=== PATIENT | male | born 1965 | race Caucasian/White ===

== ENCOUNTER 2017-07-28 08:50 | Day surgery (SDC) | payer BC, SELFPAY ==
[2017-07-24 14:18] VITALS: BMI 27.3
[2017-07-28] VITALS (13 sets, daily range): BP systolic 106–136; BP diastolic 60–79; PULSE 70–76; RESP 15–18; TEMP 36.8; O2SAT 93–99
--- NOTE | 2017-07-28 10:17 | HMH.PROC ---
[facility] Procedure Note Procedure Note:: Colonoscopy Procedure Report: Colonoscopy with cold snare polypectomy Endoscopist: Amarjit Quintanilla II, MD Referring physician: Zaki Burleson MD Date of Procedure: July 28, 2017 Equipment: Olympus 180 variable stiffness pediatric colonoscope Sedation: Fentanyl 150 mg IV/ Versed 9 mg IV Indication: Mr. Kellogg is a 51-year-old gentleman who is here for follow-up screening/surveillance colonoscopy. He does state that he had a colonoscopy in 2012 (Dr. Eyal Ahn at [facility] in [place]) and had polyps removed. He had a repeat colonoscopy again at 3 months from that time. The patient does get some intermittent heartburn and reflux. He also has intermittent functional diarrhea. He reports no rectal bleeding, abdominal pain, weight loss or family history of colon cancer. Procedure: Prior to the procedure, a history and physical exam was performed, and patient's medications and allergies were reviewed. The risks, benefits and alternatives of the sedation and procedure were discussed with the patient. All questions were answered and informed consent was obtained. The patient was brought to the procedure room. Patient identification and proposed procedure were verified by the physician and the nurse. The patient was placed in a left lateral decubitus position and the scope was passed under direct vision. Throughout the procedure, the patient's blood pressure, pulse, and oxygen saturations were monitored continuously. The colonoscopy was accomplished without difficulty. The patient tolerated the procedure well. Findings: On digital rectal examination there was normal rectal tone. There were no external hemorrhoids. The prostate was 2+, mildly firm but symmetric without nodules. The colonoscope was introduced through the anal canal to the rectum and advanced to the cecum. The ileocecal valve and appendiceal orifice were identified. The scope was advanced a short distance into the ileum which appeared grossly normal. The scope was then withdrawn into the colon. There were 6 diminutive colon polyps identified in the transverse ?2, descending ?2 and rectum ?2. These ranged in size from 4-6 mm and were all removed via cold snare polypectomy. There were scattered diverticuli throughout the descending and sigmoid colon (LEFT colon). The rectum itself was normal. Upon retroflexion within the rectum there were grade 1 internal hemorrhoids. Impression: 1. Diminutive colonic polyps ?6 2. Mild left-sided diverticulosis 3. Grade 1 internal hemorrhoids Plan: I will follow up the polyp pathology and recommend repeat colonoscopy again in 3-5 years based upon the polyp histology. I would encourage dietary measures, probiotic and bulking fiber supplementation on a long-term daily maintenance basis.
--- NOTE | 2017-07-28 10:21 | P.PCN_ITS ---
[facility] Procedure Note Procedure Note:: Colonoscopy Procedure Report: Colonoscopy with cold snare polypectomy Endoscopist: Amarjit Quintanilla II, MD Referring physician: Zaki Burleson MD Date of Procedure: July 28, 2017 Equipment: Olympus 180 variable stiffness pediatric colonoscope Sedation: Fentanyl 150 mg IV/ Versed 9 mg IV Indication: Mr. Kellogg is a 51-year-old gentleman who is here for follow-up screening/surveillance colonoscopy. He does state that he had a colonoscopy in 2012 (Dr. Eyal Ahn at [facility] in [place]) and had polyps removed. He had a repeat colonoscopy again at 3 months from that time. The patient does get some intermittent heartburn and reflux. He also has intermittent functional diarrhea. He reports no rectal bleeding, abdominal pain , weight loss or family history of colon cancer. Procedure: Prior to the procedure, a history and physical exam was performed, and patient' s medications and allergies were reviewed. The risks, benefits and alternatives of the sedation and procedure were discussed with the patient. All questions were answered and informed consent was obtained. The patient was brought to the procedure room. Patient identification and proposed procedure were verified by the physician and the nurse. The patient was placed in a left lateral decubitus position and the scope was passed under direct vision. Throughout the procedure, the patient's blood pressure, pulse, and oxygen saturations were monitored continuously. The colonoscopy was accomplished without difficulty. The patient tolerated the procedure well. Findings: On digital rectal examination there was normal rectal tone. There were no external hemorrhoids. The prostate was 2+, mildly firm but symmetric without nodules. The colonoscope was introduced through the anal canal to the rectum and advanced to the cecum. The ileocecal valve and appendiceal orifice were identified. The scope was advanced a short distance into the ileum which appeared grossly normal. The scope was then withdrawn into the colon. There were 6 diminutive colon polyps identified in the transverse ?2, descending ?2 and rectum ?2. These ranged in size from 4-6 mm and were all removed via cold snare polypectomy. There were scattered diverticuli throughout the descending and sigmoid colon (LEFT colon). The rectum itself was normal. Upon retroflexion within the rectum there were grade 1 internal hemorrhoids. Impression: 1. Diminutive colonic polyps ?6 2. Mild left-sided diverticulosis 3. Grade 1 internal hemorrhoids Plan: I will follow up the polyp pathology and recommend repeat colonoscopy again in 3 -5 years based upon the polyp histology. I would encourage dietary measures, probiotic and bulking fiber supplementation on a long-term daily maintenance basis.
== END 2017-07-28 11:30 | disposition home or self-care (01) ==
LOC: OUTP 08:51
PROVIDERS: Family Provider Family Medicine; PCP Family Medicine; Visit Provider Internal Medicine Gastroenterology
PROC: 0DJD8ZZ Inspection of Lower Intestinal Tract, Via Natural or Artificial Opening Endoscopic (ICD-10-PCS; CPT 45378; principal; 2017-07-28 10:00)
DX: Z12.11 Encounter for screening for malignant neoplasm of colon (principal); K63.5 Polyp of colon; K57.30 Diverticulosis of large intestine without perforation or abscess without bleeding; K64.0 First degree hemorrhoids; K59.1 Functional diarrhea
CPT/HCPCS: 45380; 99152; 99153

== ENCOUNTER 2020-10-04 16:10 | Outpatient (RCR) | payer BC, SELFPAY ==
--- NOTE | 2020-10-04 18:09 | HMH.PTOPEV ---
PT Outpatient Evaluation Rehab PT Outpatient Evaluation Start: 10/04/20 17:39 Freq: Status: Active Protocol: Document 10/04/20 17:39 AUGUSTINASANDRA (Rec: 10/04/20 18:09 BARRON [id number]) Electronically Signed By Daniele Gordon, PT 10/04/20 17:39 Outpatient Therapy Subjective History Subjective History This is the initial Physical Therapy evaluation for Michael Kellogg. Pt is a 54 y/o male referred to PT for c/o R shoulder pain. Pt reports pain began ~ a few weeks ago . Pt reprots no trauma just feels that his job and sleeping on it wrong aggravated it. Pt rpeorts a few years ago he had L shoulder impingement and it feels Like that again. Pt reports PCP gave him meloxicam and he has not had pain since . Chief Complaint Pain Symptom Type Ache,Sharp Symptoms Relieved By Prescription Meds Symptoms Aggravated By Lifting Prior Functional Limitations None Current Functional Limitations None Symptom Description Intermittent Level of pain today (0-10) 0 Pain scale - at its best (0-10) 0 Shoulder/Elbow Eval Shoulder Objective Measurements Palpation Tenderness Shoulder Palpation Overall Comment no TTP Posture Shoulder Posture Sitting Position Neutral Shoulder ROM Bilateral full ROM shoulder exam standard bilateral Shoulder MMT Anterior Deltoid Strength Grade 5 Normal Shoulder Abduction Strength Grade 5 Normal Shoulder Flexion Strength Grade 5 Normal Shoulder External Rotation Strength 5 Normal Grade Shoulder Internal Rotation Strength 5 Normal Grade Shoulder Strength Reason Not Measured WFL Elbow Objective Measurements Outpatient Therapy Assessment Impairments Problems/Impairmments Subjective C/O Pain Prognosis Rehab Potential Good Clinical Impression Consistent with Diagnosis Yes Short Term Goals Number of Weeks 2 Improve Tolerance to Work Activities Yes Decrease Subjective C/O Pain Yes Patient to be Ind w/ HEP Yes 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
== END 2020-10-04 16:15 | disposition home or self-care (01) ==
LOC: PT 16:10
PROVIDERS: PCP Family Medicine; Visit Provider Family Medicine
DX: M75.101 Unspecified rotator cuff tear or rupture of right shoulder, not specified as traumatic (principal)
CPT/HCPCS: 97110; 97163

== ENCOUNTER → 2022-10-04 07:10 | Outpatient (CLI) | payer BC, SELFPAY ==
--- NOTE | 2022-10-04 07:16 | CT_ITS ---
FINAL REPORT CLINICAL HISTORY: SCREENING FOR CAD,FAMILY H/O CAD, smoker FINDINGS: CT CORONARY CALCIUM SCORE W/O TECHNIQUE: Thin-section axial images were obtained through the heart and coronary arteries per CT coronary calcium score protocol. This study was performed with techniques to keep radiation doses as low as reasonably achievable (ALARA). Individualized dose reduction techniques using automated exposure control or adjustment of mA and/or kV according to the patient's size were employed. FINDINGS: On the axial images, there is diffuse calcification throughout the coronary arteries. This gives a coronary artery calcium score of 1109 based on the Agatston scale. This coronary artery calcium score places the patient within greater than 90% percentile based on age and gender. The heart size is normal. There is no pleural or pericardial effusion. Limited evaluation of the lungs reveal no suspicious nodule. There are few scattered calcified granulomas IMPRESSION: Coronary artery calcium score of 1109 places patient at greater than 90th percentile based on age and gender. Reviewed, Interpreted and Dictated by Oscar Mccracken MD Transcribed by Caprice Piña Authenticated and [facility]
== END ==
PROVIDERS: PCP Nurse Practitioner Family; Visit Provider Nurse Practitioner Family
DX: Z82.49 Family history of ischemic heart disease and other diseases of the circulatory system (principal)
CPT/HCPCS: 75571

== ENCOUNTER → 2022-11-05 06:13 | Outpatient (CLI) | payer BC, SELFPAY ==
--- NOTE | 2022-11-05 | CA_ITS ---
APPROVED REPORT Exam: Pharmacologic Technologist: Jeanine Villanueva, Ht: 5 ft 7 in Wt: 187 lbs BSA: 1.97 m2 HR: 76 bpm BP: 142/80 mmHg Rhythm: NSR, NS ST abn Medical History Medications: Pravastatin,,,,, SyMBICORT,,,,, Albuterol,,,,, Famotidine,,,,, ZeBETA,,,,, Cardiac Risk Factors: Hyperlipidemia, FHX of CAD, Smoking Stress Test Details Test: LEXISCAN HR Resting HR: 64 bpm Max Heart Rate (APMHR): 164.809756 bpm Max HR Achieved: 95 bpm Target HR (85% APMHR): 139.194549 bpm % of APMHR: 57.93 Recovery HR: 76 bpm BP Resting BP: 152/80 mmHg Max BP: 161/79 mmHg Recovery BP: 142.0/80.0 mmHg ECG Resting ECG: NSR, NS ST abn Clinical Exercise duration: 04:00 min Highest Stage Achieved: Exercise capacity: 1.0 METs Stress ECG Conclusion During lexiscan pt experinced brief SOA, stomach discomfort, head discomfort. No CP noted. No arrhythmias noted. Nonspecific T wave changes. Unremarkable lexiscan stress. Myoview images reported separately. Test Summary REST . . . . . . . Sitting REST 04:00 . . 64 . 152/ 80 . . Stage 1 01:00 . . 89 . . . . Stage 2 01:00 . . 87 . 161/ 79 . . Stage 3 01:00 . . 86 . 140/ 76 . . Stage 4 01:00 . . 77 . 151/ 84 . Stop exercise at 04:00 RECOVERY 01:00 . . 81 . . . . RECOVERY 02:00 . . 74 . 142/ 80 . . RECOVERY 03:00 . . 76 . 142/ 80 . . RECOVERY 04:00 . . 72 . 142/ 80 . . RECOVERY 04:59 . . 68 . 160/ 85 . . Electronically signed by : Tim Pacheco MD 11/05/2022 09:51:23
--- NOTE | 2022-11-05 06:15 | NM_ITS ---
APPROVED REPORT Exam: Nuclear Stress Test Indication: HTN, HYPERLIPIDEMIA, TOB USE, FM HX., SOB, SYNCOPE, FATIGUE, HIGH CALCIUM SCORE Patient Location: Outpatient Stress Tech: Jeanine Villanueva [place] Tech:Florence MiguelARLEEN martínez RT (R)(N)(M) Ht: 5 ft 7 in Wt: 180 lbs HR: 58 bpm BP: 152/80 mmHg BSA: 1.93 m2 TID: 1.13 BMI: 28.1 History: HTN, HYPERLIPIDEMIA, TOB USE, FM HX., SOB, SYNCOPE, FATIGUE, HIGH CALCIUM SCORE Procedure: Patient received 0.4 mg of intravenous AdenosineLexiscan, resting heart rate 58 bpm, resting blood pressure 152/80 mmHg, with AdenosineLexiscan maximum heart rate achieved was 95 bpm which is % of the maximum predicted heart rate and blood pressure was 161/79 mmHg. With Lexiscan, patient denied any complaint of chest pain. Cardiac Stress and Resting SPECT Images: Cardiac Stress and Resting SPECT images were obtained using technetium 99m Myoview 31.5 mCi stress and 10.71 mCi at rest. 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
== END ==
LOC: RAD 06:15
PROVIDERS: PCP Nurse Practitioner Family; Visit Provider Nurse Practitioner
DX: R06.09 Other forms of dyspnea (principal); I20.8 Other forms of angina pectoris; R93.1 Abnormal findings on diagnostic imaging of heart and coronary circulation; F17.200 Nicotine dependence, unspecified, uncomplicated
CPT/HCPCS: 78452; 93017; 93306; A9502; J2785

== ENCOUNTER 2022-11-22 08:50 | Day surgery (SDC) | payer BC, SELFPAY ==
[2022-11-22] VITALS (13 sets, daily range): BP systolic 113–143; BP diastolic 60–126; PULSE 63–74; RESP 14–20; TEMP 36.9; O2SAT 93–98; BMI 29.2
--- NOTE | 2022-11-22 07:06 | IR_ITS ---
APPROVED REPORT Patient Location: Outpatient General Operations Manager: ARLEEN Sotelo RT (R) PROCEDURES Left heart catheterization Left ventriculogram Selective coronary angiogram Drug-eluting stent deployment to the proximal and mid ramus intermedius INDICATION Accelerated angina pectoris, Coronary artery disease, Informed consent was obtained prior to the procedure. COMPLICATIONS None Estimated Blood Loss: Less than 10 ml TECHNIQUE One percent lidocaine used to anesthetize the right anterior aspect of the wrist. The right radial artery was accessed via the Seldinger technique. A 6 Malay sheath was placed in the right radial artery. 150 mg magnesium sulfate, 800 mcg of nitroglycerin, 1mg Lidocaine and 5000 U Heparin were given through the arterial sheath. The papa catheter was also used to perform left heart catheterization, left ventriculogram and selective coronary angiogram. At the end the diagnostic angiogram therapeutic heparin was administered giving a therapeutic ACT and the guide catheter was placed in the left main artery followed by Choice PT extra-support wire being placed on the ramus intermedius. A 2.25 x 38 mm Pickens frontier stent was deployed at 18 kael reducing the severe stenosis to 0%. LEONILA-3 flow was present before and after the procedure at the end the procedure the apparatus was removed the sheath was removed and hemostasis was achieved using TR banding patient was transferred to the postop putting in stable condition ANGIOGRAPHIC RESULTS The left main artery Normal The left anterior descending artery Has proximal and mid vessel 20 and 30% calcified stenoses The circumflex artery Is a dominant vessel and gives rise to a moderate to large ramus intermedius which has an ostial 30 to 40% stenosis followed by 50 and then 70 to 80% mid vessel stenosis. The remaining circumflex artery then has a 30% stenosis immediately after the ramus intermedius with an additional 30% stenosis in the first obtuse marginal artery. The right coronary artery Is a codominant vessel and has mild mid vessel distal 10% luminal regularities The ANGULO ventriculogram reveals Normal 65% The left ventricular end-diastolic pressure 10 mmHg IMPRESSION Severe single-vessel coronary disease involving a moderate to large ramus intermedius Successful stenting of the proximal and mid ramus intermedius severe disease reduced to 0% with 1 drug-eluting stent Normal ejection fraction Normal left ventricular end-diastolic pressure PLAN 1. Dual antiplatelet therapy 2. LDL less than 55 to be achieved with high intensity statin 3. Avoidance of tobacco product 4. Risk factor modification 5. Cardiac rehabilitation Electronically signed by : Tim Pacheco MD 11/22/2022 12:50:15
[2022-11-22 09:35] LABS: Chloride 98 mmol/L (98-107); Sodium 140 mmol/L (136-145)
[2022-11-22 09:38] LABS: Blood Urea Nitrogen 11 mg/dl (9-20); Calcium 9.9 mg/dl (8.4-10.2); Carbon Dioxide 33 mmol/L (22.0-30.0); Creatinine Clearance Estimated 99 mL/min (50-200); Estimated Glomerular Filt Rate 77 ml/min (>60); GFR (African American) 94 ML/MIN (>60); Glucose 119 mg/dl (74-100)
[2022-11-22 09:50] LABS: Basophils # 0.1 K/mm3 (0-0.2); Eosinophils # 0.5 K/mm3 (0.0-0.4); Eosinophils % 3.9 % (0.1-12.0); Hematocrit 51.7 % (42.0-52.0); Hemoglobin 16.6 g/dL (14.1-18.0); Lymphocytes # 4.4 K/mm3 (0.7-4.5); Mean Corpuscular HGB Conc 32.1 g/dL (31.8-35.4); Mean Corpuscular Hemoglobin 30.7 pg (27.0-31.2); Mean Corpuscular Volume 95.6 fl (80-94); Monocytes # 0.9 K/mm3 (0.1-1.0); Monocytes % 7.5 % (1.7-9.3); Neutrophils # 6.6 K/mm3 (1.8-7.8); Neutrophils % 52.6 % (37.0-80.0); Platelet Count 327 K/mm3 (142-424); Red Blood Count 5.41 M/mm3 (4.60-6.20); Red Cell Distribution Width 13.2 % (11.5-17.5); White Blood Count 12.6 K/mm3 (4.8-10.8)
[2022-11-22 09:56] LABS: INR 0.98 (0.9-1.1); Prothrombin Time 10.6 seconds (10.1-12.5)
--- NOTE | 2022-11-22 15:05 | HMH.PHACL ---
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
== END 2022-11-22 15:12 | disposition home or self-care (01) ==
PROVIDERS: PCP Nurse Practitioner Family; Visit Provider Internal Medicine
DX: I25.118 Atherosclerotic heart disease of native coronary artery with other forms of angina pectoris (principal); F17.210 Nicotine dependence, cigarettes, uncomplicated; I10 Essential (primary) hypertension; Z82.49 Family history of ischemic heart disease and other diseases of the circulatory system; Z79.899 Other long term (current) drug therapy
CPT/HCPCS: 80048; 85025; 85610; 92928; 93458; 99152; 99153; C1725; C1769; C1876; C9600; J1644; Q9967

== ENCOUNTER → 2022-11-28 12:15 | Outpatient (CLI) | payer BC, SELFPAY ==
[2022-11-28 12:31] LABS: Basophils # 0.1 K/mm3 (0-0.2); Basophils % 0.7 % (0.1-2.0); Eosinophils # 0.5 K/mm3 (0.0-0.4); Eosinophils % 3.8 % (0.1-12.0); Hematocrit 48.8 % (42.0-52.0); Lymphocytes # 3.1 K/mm3 (0.7-4.5); Lymphocytes % 24.1 % (10-50); Mean Corpuscular HGB Conc 32.8 g/dL (31.8-35.4); Mean Corpuscular Hemoglobin 30.6 pg (27.0-31.2); Mean Corpuscular Volume 93.2 fl (80-94); Monocytes # 1.1 K/mm3 (0.1-1.0); Monocytes % 8.3 % (1.7-9.3); Neutrophils # 8.2 K/mm3 (1.8-7.8); Neutrophils % 63.1 % (37.0-80.0); Platelet Count 325 K/mm3 (142-424); Red Blood Count 5.23 M/mm3 (4.60-6.20); Red Cell Distribution Width 13.2 % (11.5-17.5)
[2022-11-28 12:53] LABS: Anion Gap 16.9 mEq/L (5-15); Blood Urea Nitrogen 12 mg/dl (9-20); Calcium 9.3 mg/dl (8.4-10.2); Carbon Dioxide 28 mmol/L (22.0-30.0); Chloride 100 mmol/L (98-107); Estimated Glomerular Filt Rate 87 ml/min (>60); GFR (African American) 106 ML/MIN (>60); Glucose 114 mg/dl (74-100); Potassium 3.9 mmoL/L (3.5-5.1); Sodium 141 mmol/L (136-145)
[2022-11-28 13:54] LABS: Alanine Aminotransferase 47 U/L (12-78); Albumin Level 4.5 g/dl (3.5-5.0); Alkaline Phosphatase 46 U/L (38-126); Aspartate Amino Transferase 36 U/L (17-59); Bilirubin,Indirect 0.4 mg/dL (0.0-0.9); Bilirubin,Total 0.4 mg/dl (0.2-1.3); Bilirubin,Unconjugated 0.4 mg/dL (0.0-1.1); Chol/HDL Ratio 5.4 (1-3.5); Cholesterol 196 mg/dl (140-200); HDL Cholesterol 36 mg/dl (40-60); Total Protein,Serum 7.2 g/dl (6.3-8.2); Triglycerides 390 mg/dl (30-150); VLDL Cholesterol 78 mg/dL (0-40)
[2022-11-28 14:05] LABS: Direct LDL Cholesterol 107.36 mg/dL (100-129)
== END ==
PROVIDERS: Nurse Practitioner; PCP Nurse Practitioner Family; Visit Provider Internal Medicine
DX: I25.10 Atherosclerotic heart disease of native coronary artery without angina pectoris (principal); E78.5 Hyperlipidemia, unspecified
CPT/HCPCS: 36415; 80048; 80061; 80076; 85025

== ENCOUNTER 2022-12-07 16:30 | Emergency (ER) | payer BC, SELFPAY ==
[2022-12-07 16:30] VITALS: BP 130/86; PULSE 88; RESP 20; TEMP 36.8; O2SAT 98; BMI 28.1
--- NOTE | 2022-12-07 16:39 | EXP.UTC ---
Discharge Plan Disposition Patient Disposition: Home, Self-Care Condition: Good Prescriptions Prescriptions: New amoxicillin [amoxicillin] 500 mg tablet 500 mg PO BID 10 Days Qty: 20 0RF No Action pravastatin 20 mg tablet 20 mg PO DAILY Label Comments: TAKE 1 TABLET BY MOUTH EVERY DAY FOR 30 DAYS famotidine 40 mg tablet 40 mg PO HS Label Comments: TAKE 1 TABLET BY MOUTH EVERYDAY AT BEDTIME aspirin 81 mg Tablet,Chewable 81 mg PO DAILY 30 Days Qty: 30 6RF Brilinta 90 mg Tablet 90 mg PO BID Qty: 180 4RF ramipril 2.5 mg Capsule 2.5 mg PO DAILY Qty: 30 3RF budesonide-formoterol [Symbicort] 10.2 GM HFA aerosol inhaler 10.2 g inhalation BID ProAir RespiClick 90 MCG aerosol powdr breath activated 90 mcg inhalation Q4HP PRN (Reason: COPD) bisoprolol fumarate [Zebeta] 10 MG tablet 10 mg PO BID Referrals Follow up/Referrals: Serena Fried APRN [Primary Care Provider] - See instructions Activity Restrictions/Add. Instructions Additional Instructions/Restrictions: Start antibiotic as soon as possible and be sure to take as ordered for full length of time even though he should start feeling better in 24-48 hours. Tylenol or Motrin as needed for pain or fever Encourage fluids, water, Gatorade, Powerade, Pedialyte if infant/toddler/child Warm compresses often helps when placed over ear Return immediately for new or worsening symptoms no noticeable improvement in 48-72 hours and in 10-14 days to ensure the ears are return to baseline. Follow-up with primary care Clinical Impressions Clinical Impression: Otitis media Instructions Patient Instructions: Middle Ear Infection Discharge ED Provider: Travis ([facility])Blanca [facility] HPI General Stated complaint: left ear pain Mode of Arrival: Ambulatory Source of Information: Patient Limitations: No Limitations Time Seen by Provider: 12/07/22 16:39 Description of Symptoms (Recalled from Triage Doc. by RN): PATIENT C/O LEFT EAR PAIN THAT STARTED LAST NIGHT HEENT Symptoms (Recalled from RN notes): Yes Resp Symptoms (Recalled from RN notes): No Skin Symptoms (Recalled from RN notes): No MS Symptoms (Recalled from RN notes): No Functional Status (Recalled from RN notes): WNL History of Present Illness Provider Complaint: 57 yr old male presents for left ear pain Related Data Home Medications Medication Instructions Recorded Confirmed albuterol sulfate 90 mcg/actuation 90 mcg inhalation Q4HP PRN COPD 07/23/17 11/28/22 breath activated powder inhaler (ProAir RespiClick) budesonide-formoterol HFA 160 10.2 g inhalation BID COPD 07/23/17 11/28/22 mcg-4.5 mcg/actuation aerosol inhaler (Symbicort) bisoprolol fumarate 10 mg tablet 10 mg PO BID blood pressure 07/28/17 11/28/22 (Zebeta) famotidine 40 mg tablet 40 mg PO HS stomach 10/09/22 11/28/22 pravastatin 20 mg tablet 20 mg PO DAILY cholesterol; 10/09/22 11/28/22 Previous Rx's Medication Instructions Recorded aspirin 81 mg chewable tablet 81 mg PO DAILY 30 days #30 tabs 11/22/22 ramipril 2.5 mg capsule 2.5 mg PO DAILY #30 caps 11/22/22 ticagrelor 90 mg tablet (Brilinta) 90 mg PO BID #180 tabs 11/22/22 amoxicillin 500 mg tablet 500 mg PO BID 10 days #20 tabs 12/07/22 Allergies Allergy/AdvReac Type Severity Reaction Status Date / Time No Known Allergies Allergy Verified 11/28/22 13:19 Worker's Comp Is this a Worker's Comp case?: No [facility] Disclaimer: The information contained in this section may have been updated after the patient was seen, as this information can be updated by other users. 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
[2022-12-07 16:42] VITALS: BP 130/86; PULSE 88; RESP 20; TEMP 36.8; O2SAT 98
== END 2022-12-07 16:51 | disposition home or self-care (01) ==
PROVIDERS: Emergency Provider Nurse Practitioner Family; PCP Nurse Practitioner Family
DX: H66.92 Otitis media, unspecified, left ear (principal); F17.210 Nicotine dependence, cigarettes, uncomplicated
CPT/HCPCS: 99204; 99212; G0463

== ENCOUNTER 2023-10-13 13:06 | Outpatient (CLI) | payer BC, SELFPAY ==
[2023-10-13 13:09] LABS: Basophils # 0.1 K/mm3 (0-0.2); Basophils % 1.1 % (0.1-2.0); Eosinophils # 0.5 K/mm3 (0.0-0.4); Eosinophils % 4.8 % (0.1-12.0); Hematocrit 51.7 % (42.0-52.0); Hemoglobin 16.6 g/dL (14.1-18.0); Lymphocytes # 4.9 K/mm3 (0.7-4.5); Lymphocytes % 42.4 % (10-50); Mean Corpuscular HGB Conc 32.1 g/dL (31.8-35.4); Mean Corpuscular Volume 96.6 fl (80-94); Mean Platelet Volume 8.3 fl (7.4-10.4); Monocytes % 8.5 % (1.7-9.3); Neutrophils % 43.3 % (37.0-80.0); Platelet Count 333 K/mm3 (142-424); Red Blood Count 5.35 M/mm3 (4.60-6.20); Red Cell Distribution Width 13.6 % (11.5-17.5); White Blood Count 11.5 K/mm3 (4.8-10.8)
[2023-10-13 13:42] LABS: Alanine Aminotransferase 41 U/L (12-78); Albumin Level 4.5 g/dl (3.5-5.0); Albumin/Globulin Ratio 1.6 (1.1-1.8); Alkaline Phosphatase 61 U/L (38-126); Anion Gap 15.1 mEq/L (5-15); Aspartate Amino Transferase 37 U/L (17-59); Bilirubin,Total 0.4 mg/dl (0.2-1.3); Blood Urea Nitrogen 11 mg/dl (9-20); Calcium 10.8 mg/dl (8.4-10.2); Carbon Dioxide 27 mmol/L (22.0-30.0); Chloride 102 mmol/L (98-107); Cholesterol 235 mg/dl (140-200); Estimated Glomerular Filt Rate 77 ml/min (>60); GFR (African American) 93 ML/MIN (>60); Globulin 2.9 g/dL (1.3-3.2); Glucose 102 mg/dl (74-100); HDL Cholesterol 47 mg/dl (40-60); Potassium 4.1 mmoL/L (3.5-5.1); Sodium 140 mmol/L (136-145); Total Protein,Serum 7.4 g/dl (6.3-8.2); Triglycerides 307 mg/dl (30-150); VLDL Cholesterol 61 mg/dL (0-40)
[2023-10-13 13:53] LABS: Direct LDL Cholesterol 130.73 mg/dL (100-129)
[2023-10-13 13:56] LABS: 25-OH Vitamin D, Total 14.5 ng/mL (30-100)
[2023-10-13 14:12] LABS: Prostate Specific Ag Screen 0.7 ng/ml (0.0-4.0); Thyroid Stimulating Hormone 1.93 uIU/mL (0.465-4.68)
[2023-10-13 14:31] LABS: Vitamin B12 239 pg/mL (239-931)
== END 2023-10-13 23:59 | disposition home or self-care (01) ==
LOC: LAB.DROPOF 13:07
PROVIDERS: PCP Nurse Practitioner Family; Visit Provider Nurse Practitioner Family
DX: E78.5 Hyperlipidemia, unspecified (principal); I10 Essential (primary) hypertension; K12.1 Other forms of stomatitis; H66.90 Otitis media, unspecified, unspecified ear; Z12.5 Encounter for screening for malignant neoplasm of prostate; E55.9 Vitamin D deficiency, unspecified; Z68.28 Body mass index [BMI] 28.0-28.9, adult; F17.210 Nicotine dependence, cigarettes, uncomplicated
CPT/HCPCS: 80053; 80061; 82306; 82607; 84443; 85025; G0103

== ENCOUNTER 2024-01-19 14:11 | Outpatient (CLI) | payer BC, SELFPAY ==
[2024-01-19 12:07] LABS: Influenza A, PCR Not Detected (NotDetected); Influenza B, PCR Not Detected (NotDetected)
[2024-01-19 13:06] LABS: Erythrocyte Sedimentation Rate 4 mm/hr (0-20)
[2024-01-19 13:31] LABS: Coronavirus 19, PCR Detected (NotDetected)
[2024-01-20 07:28] LABS: RA Latex Turbid. <10.0 IU/mL (<14.0)
[2024-01-20 16:14] LABS: Antinuclear Antibodies, IFA Negative (.)
== END 2024-01-19 23:59 | disposition home or self-care (01) ==
LOC: LAB.DROPOF 14:12
PROVIDERS: PCP Nurse Practitioner Family; Visit Provider Nurse Practitioner Family
DX: R50.9 Fever, unspecified (principal); M25.50 Pain in unspecified joint
CPT/HCPCS: 82306; 84550; 85651; 86038; 86431; 87636

== ENCOUNTER 2024-05-17 09:52 | Day surgery (SDC) | payer BC, SELFPAY ==
[2024-05-14 15:07] VITALS: BMI 28.1
[2024-05-17 10:12] VITALS: BP 150/80; PULSE 76; RESP 18; TEMP 36.1; O2SAT 98
--- NOTE | 2024-05-17 10:13 | EXP.ANES.CKL ---
[facility] Disclaimer: The information contained in this section may have been updated after the patient was seen, as this information can be updated by other users. Medical History Tibial plateau fracture, left Surgical History Hx of colonoscopy with polypectomy Family History Other Coronary artery disease Diabetes Heart attack Hyperlipidemia Hypertension Social History Smoking Status: Current every day smoker tobacco type: cigarettes packs per day: 1 alcohol intake: current alcohol intake frequency: holidays/special occasions only substance use type: denies use current occupational status: employed Travel in the last 8 weeks: None caffeine: Yes [facility] Anesthesia Checklist Patient Identification Patient Identification: Arm Band and Verbal (Name & ) Structural Data Admitted From: Home Planned Operative Procedure/s: Colonoscopy Consent for Planned Operative Procedure(s) Verified: Yes Verified Documents: Surgical Consent and History and Physical NPO Status Verified Time NPO: 00:00 Additional verifications Anesthesia Reactions: No Airway Assessment C-Spine Mobility Assessed: Yes TMJ Mobility Assessed: Yes Dentition: Dentures-poor fitting (Removed) Neurological Assessment Level of Consciousness: Awake Hx Seizures: No Anesthesia Plan Anesthesia Risk discussed: Yes Anesthesia Plan: Verified ASA Class: III Anesthesia Type: MAC
[2024-05-17] MEDS: LACTATED RINGERS 1000ML 1,000 ML 25 ML IV (10:21)
[2024-05-17 10:30] VITALS: O2SAT 98
--- NOTE | 2024-05-17 10:37 | EXP.HP ---
History of Present Illness *Admission Date: 05/17/24 *Reason for visit:: Personal history of adenomatous colon polyps *History of present illness: Mr. Kellogg is a 58-year-old gentleman who is here for surveillance colonoscopy secondary to a personal history of adenomatous polyps. His last colonoscopy was June 2017 and he had 6 colon polyps(Sessile serrated adenomas x 3/hyperplastic polyps x 3) removed. The examination is deemed medically necessary for colonoscopy. The patient has been seen, interviewed and examined prior to the procedure by both myself and the anesthesia provider. [facility] Disclaimer: The information contained in this section may have been updated after the patient was seen, as this information can be updated by other users. Medical History (Updated 05/17/24 @ 10:38 by Amarjit Quintanilla II, MD) Sleep apnea History of gastroesophageal reflux (GERD) Tibial plateau fracture, left Surgical History (Updated 05/17/24 @ 10:20 by Louise Bernstein RN) Hx of knee surgery History of surgery Hx of colonoscopy with polypectomy Family History Other Coronary artery disease Diabetes Heart attack Hyperlipidemia Hypertension Social History (Updated 05/17/24 @ 10:20 by Louise Bernstein RN) Smoking Status: Current every day smoker tobacco type: cigarettes packs per day: 1 alcohol intake: former substance use type: denies use current occupational status: employed Travel in the last 8 weeks: None caffeine: Yes Other Medical History Have you received the Pneumonia Vaccine: Yes Review of Systems Review of Systems Review of systems (narrative): Negative *Cardiovascular Comments: Negative *Gastrointestinal Comments: Negative *Genitourinary Comments: Negative *Musculoskeletal Comments: Negative *Neurologic Comments: Negative Meds Home Medications and Allergies Home Medications ?Medication ?Instructions ?Recorded ?Confirmed ?Type albuterol sulfate 90 mcg/actuation 90 mcg inhalation Q4HP PRN COPD 07/23/17 05/17/24 History breath activated powder inhaler (ProAir RespiClick) aspirin 81 mg chewable tablet 81 mg PO DAILY 30 days #30 tabs 11/22/22 05/17/24 Rx budesonide-formoterol HFA 160 2 inh inhalation BID COPD 90 days 10/27/23 05/17/24 Rx mcg-4.5 mcg/actuation aerosol #3 ea inhaler (Symbicort) fluticasone propionate 50 See Rx Instructions .Route 12/15/23 05/17/24 Rx mcg/actuation nasal .COMPLEX #48 mL spray,suspension bisoprolol 10 1 tab PO BID 90 days #180 tabs 02/02/24 05/17/24 Rx mg-hydrochlorothiazide 6.25 mg tablet famotidine 40 mg tablet 40 mg PO HS stomach 90 days #90 02/20/24 05/17/24 Rx tabs montelukast 10 mg tablet 10 mg PO DAILY #90 tabs 04/26/24 05/17/24 Rx sodium,potassium,mag sulfates 17.5 See Rx Instructions PO .COMPLEX 05/10/24 05/14/24 Rx gram-3.13 gram-1.6 gram oral soln #354 mL (Suprep Bowel Prep Kit) New Prescriptions to Start Prescriptions: Allergies Allergy/AdvReac Type Severity Reaction Status Date / Time No Known Allergies Allergy Verified 05/17/24 10:05 Exam Data for Last 24 hours Vital signs and Labs for Last 24 Hours: Temp Pulse Resp BP Pulse Ox O2 Del Method O2 Flow Rate 97.0 F L 76 18 150/80 H 98 Nasal Cannula 5 05/17/24 10:12 05/17/24 10:12 05/17/24 10:12 05/17/24 10:12 05/17/24 10:12 05/17/24 10:30 05/17/24 10:30 I & O for Last 24 hours: Intake & Output 05/14/24 05/15/24 05/16/24 05/17/24 23:59 23:59 23:59 23:59 Weight 180 lb *Routine HEENT Exam Head: Present normocephalic Eye: Present EOMI and PERRL ENT: Present mucous membranes moist *Routine Neck Exam Neck: Present supple *Routine Respiratory Exam Respiratory: Present CTA bilaterally *Routine Cardiovascular Exam Cardiovascular: Present RRR *Routine Abdominal Exam Abdominal: Present soft and normoactive bowel sounds; Absent tenderness *Routine Rectal Exam Rectal:: deferred *Routine Genitalia Exam Genitalia:: deferred *Routine Extremities Exam Extremities: Absent cyanosis, clubbing or edema *Routine Skin Exam Skin: Present warm; Absent rash *Routine Neurological Exam Neurological: Present alert and oriented X3 Assessment and Plan *Assessment and plan (1) Personal history of adenomatous and serrated colon polyps: Status: Acute Category: Medical Code(s): Z86.0101 - Personal history of adenomatous and serrated colon polyps Plan A/P: 1. Personal history of adenomatous colon polyps is the preprocedural diagnosis. The patient will be anesthetized/sedated using MAC sedation. The patient has been seen and examined. Cardiac and lung assessment prior to the examination is stable. Proceed with planned colonoscopy
--- NOTE | 2024-05-17 10:38 | HMH.PROCNOTE ---
[facility] Procedure Note Date: 05/17/24 Time: 10:55 Procedure Note:: Colonoscopy Procedure Report: Colonoscopy with cold snare polypectomy Endoscopist: Amarjit Quintanilla II, MD Referring physician: SU Brown Date of Procedure: May 17, 2024 Equipment: Olympus 190 variable stiffness pediatric colonoscope Sedation: MAC sedation Indication: Mr. Kellogg is a 58-year-old gentleman who is here for follow-up surveillance colonoscopy secondary to a personal history of adenomatous colon polyps. He did have a colonoscopy in 2012 (Dr. Eyal Ahn) and had polyps removed. At that time he had a repeat colonoscopy at 3 months. His last colonoscopy was with mt in June 2017 at which time 6 polyps (small serrated adenomas x 3/hyperplastic polyps x 3) were removed. He reports no abdominal pain, weight loss, change in his bowel habits or rectal bleeding. He reports no family history of colon cancer. Procedure: Prior to the procedure, a history and physical exam was performed, and patient's medications and allergies were reviewed. The risks, benefits and alternatives of the sedation and procedure were discussed with the patient. All questions were answered and informed consent was obtained. The patient was brought to the procedure room. Patient identification and proposed procedure were verified by the physician and the nurse. The patient was placed in a left lateral decubitus position and the scope was passed under direct vision. Throughout the procedure, the patient's blood pressure, pulse, and oxygen saturations were monitored continuously. The colonoscopy was accomplished without difficulty. The patient tolerated the procedure well. Findings: On digital rectal examination there was normal rectal tone. There were no external hemorrhoids. The prostate was 2+, smooth, soft, symmetric without nodules. The colonoscope was introduced through the anal canal to the rectum and advanced to the cecum. The ileocecal valve and appendiceal orifice were identified. The scope was advanced a short distance into the ileum which appeared grossly normal. The scope was then withdrawn into the colon. The cecum and ascending colon were normal. There were 3 colon polyps (transverse x 2 (6 and 8 mm) and descending x 1 (8 mm)). These were all removed via cold snare polypectomy. There were diverticuli scattered throughout the colon but more predominantly in the descending and sigmoid colon. The remainder of the descending, sigmoid and rectum were normal. Upon retroflexion within the rectum there were grade 1-2 internal hemorrhoids. The preparation was excellent throughout with [place] Preparation Score of 9. The cecal time was 13 minutes. Impression: 1. Colonic polyps x 3 (ranging in size from 6 to 8 mm) 2. Pandiverticulosis 3. Grade 1-2 internal hemorrhoids Plan: I will follow-up the polyp histology and recommend repeat surveillance colonoscopy again in 5 years. I would encourage psyllium bulking fiber supplementation on a maintenance basis.
[2024-05-17 10:57] VITALS: BP 90/59; PULSE 75; RESP 16; TEMP 36.6; O2SAT 96
[2024-05-17 11:07] VITALS: BP 93/57; PULSE 76; RESP 16; O2SAT 96
[2024-05-17 11:17] VITALS: BP 127/80; PULSE 78; RESP 16; O2SAT 97
[2024-05-17 11:27] VITALS: BP 133/79; PULSE 72; RESP 16; O2SAT 97
== END 2024-05-17 11:30 | disposition home or self-care (01) ==
PROVIDERS: PCP Nurse Practitioner Family; Visit Provider Internal Medicine Gastroenterology
PROC: (CPT 45385; principal; 2024-05-17 11:30)
DX: K63.5 Polyp of colon (principal); K57.30 Diverticulosis of large intestine without perforation or abscess without bleeding; K64.8 Other hemorrhoids; Z09 Encounter for follow-up examination after completed treatment for conditions other than malignant neoplasm; Z86.0101 Personal history of adenomatous and serrated colon polyps
CPT/HCPCS: 45385; J7120

== ENCOUNTER 2025-02-25 08:40 | Outpatient (CLI) | payer BC, SELFPAY ==
[2025-02-25 14:11] LABS: Hematocrit 47.4 % (42.0-52.0); Hemoglobin 16.2 g/dL (14.1-18.0); Immature Granulocytes % 0.4 %; Mean Corpuscular HGB Conc 34.2 g/dL (31.8-35.4); Mean Corpuscular Hemoglobin 31.1 pg (27.0-31.2); Mean Corpuscular Volume 91.0 fl (80-94); Nucleated Red Blood Cells % 0 %; Platelet Count 322 K/mm3 (142-424); Red Blood Count 5.21 M/mm3 (4.60-6.20); Red Cell Distribution Width-SD 43.0 fL; White Blood Count 11.2 K/mm3 (4.8-10.8)
[2025-02-25 14:28] LABS: Albumin Level 4.7 g/dl (3.5-5.0); Chloride 105 mmol/L (98-107); Potassium 4.3 mmoL/L (3.5-5.1); Sodium 138 mmol/L (136-145)
[2025-02-25 14:31] LABS: Alanine Aminotransferase 49 U/L (12-78); Albumin/Globulin Ratio 1.8 (1.1-1.8); Alkaline Phosphatase 47 U/L (38-126); Anion Gap 12.3 mEq/L (5-15); Aspartate Amino Transferase 40 U/L (17-59); Bilirubin,Total 0.5 mg/dl (0.2-1.3); Blood Urea Nitrogen 11 mg/dl (9-20); Calcium 9.6 mg/dl (8.4-10.2); Carbon Dioxide 25 mmol/L (22.0-30.0); Cholesterol 246 mg/dl (140-200); Creatinine,Serum 0.90 mg/dl (0.66-1.25); Estimated Glomerular Filt Rate 86 ml/min (>60); GFR (African American) 105 ML/MIN (>60); Globulin 2.6 g/dL (1.3-3.2); Glucose 100 mg/dl (74-100); Total Protein,Serum 7.3 g/dl (6.3-8.2); Triglycerides 232 mg/dl (30-150)
[2025-02-25 14:32] LABS: HDL Cholesterol 36 mg/dl (40-60)
[2025-02-25 15:03] LABS: Thyroid Stimulating Hormone 1.05 uIU/mL (0.465-4.68)
--- OUTSIDE RECORDS SUMMARY | 2025-02-28 08:42 | XMS_ITS | Clinical Summary ---
Author Organization 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 Name Role Phone Unavailable Primary Care Provider Unavailabl e Social History Tobacco Use Types Packs/Day Years Used Date Smoking Tobacco: Never Assessed Sex and Gender Information Value Date Recorded Sex Assigned at Not on file Legal Sex Male 8:25 PM EDT Gender Identity Not on file Sexual Orientation Not on file Plan of Treatment Health Maintenance Due Date Last Done Comments [facility]-Depression Screening 1965 [facility]-Infant/Child/Adol SDOH Screenings 1965 [facility]- SDOH Screenings 12/05/1983 [facility]-Adult SDOH Screenings 12/05/1983 [facility]-DTaP,Tdap,and Td Vaccine s (1 - Tdap) 1984 [facility]-Hepatitis B Vaccines (2 of 3 - 19+ 3-dose series) 05/11/1998 04/13/1998 CT Colonography 2010 Colonoscopy 2010 FIT-DNA 2010 FIT 2010 FOBT 2010 Sigmoidoscopy 2010 [facility]-Colorectal Cancer Screening 2010 [facility]-Pneumococcal Vaccine: 50 + Years (1 of 1 - PCV) 12/05/2015 [facility]-Zoster Vaccines (1 of 2) 12/05/2015 [id number] Vaccine (1 - 20 24-25 season) 2024 [facility]-Influenza Vaccine (#1) 2025 HPV Vaccines Aged Out No longer eligi ble based on patient's age to complete this topic [facility]-HIB Vaccines Aged Out No longer e ligible based on patient's age to complete this topic [facility]-Hepatitis A Vaccines Aged Out No longer eligible based on patient's age to complete this topic [facility]-IPV Vaccines Aged Out No longer e ligible based on patient's age to complete this topic [facility]-Rotavirus Vaccines Aged Out No lo nger eligible based on patient's age to complete this topic Insurance ANTH
--- OUTSIDE RECORDS SUMMARY | 2025-02-28 08:42 | XMS_ITS | Clinical Summary ---
Author Organization [facility] [place] [id number] Care Team Providers Care Information Clerk Brokerage Name Role Phone Unavailable Primary Care Provider Unavailabl e Social History Tobacco Use Types Packs/Day Years Used Date Smoking Tobacco: Never Assessed Sex and Gender Information Value Date Recorded Sex Assigned at Not on file Legal Sex Male 8:14 PM EDT Gender Identity Not on file Sexual Orientation Not on file Plan of Treatment Health Maintenance Due Date Last Done Comments Annual Wellness Exam 1968 DTaP/TDaP/Td (1 - Tdap) 1984 Hepatitis B Vaccine (1 of 3 - 19+ 3-dose series) 1984 Cologuard 2010 Colon Cancer Screening 2010 Colonoscopy 2010 FIT 2010 Sigmoidoscopy 2010 Virtual Colonography 2010 Pneumococcal Vaccine 50+ (1 of 1 - PCV) 12/05/2015 Zoster (1 of 2) 12/05/2015 COVID-19 Vaccine ( - 2023-2 5 season) 2024 Influenza Vaccine (#1) 2025 Meningococcal B Vaccine Aged Out No l onger eligible based on patient's age to complete this topic
== END 2025-02-25 23:59 ==
LOC: LAB.DROPOF 02-28 08:40
PROVIDERS: PCP Nurse Practitioner Family; Visit Provider Nurse Practitioner Family
DX: Z12.5 Encounter for screening for malignant neoplasm of prostate (principal); E78.5 Hyperlipidemia, unspecified; I10 Essential (primary) hypertension
CPT/HCPCS: 80053; 80061; 84443; 85025; G0103